=== PATIENT | male | born 1945 | race Hispanic/Latino ===

== ENCOUNTER → 2017-09-17 | Outpatient (CLI) | payer MEDICARE, OTHER ==
[~2017-09-17] MED LIST: BENEFIBER240 GM PO; CLOPIDOGREL75 MG PO; FENOFIBRATE; LOSARTAN POTASS25 MG PO; LYRICA50 MG; NORCO 10-325 T1 EACH; PANTOPRAZOLE SO40 MG PO; TYLENOL; ULTRAM 50MG50 MG PO; ZANTAC
--- NOTE | 2017-09-17 15:05 | Diagnostic Imaging Report ---
PROCEDURE:X-RAY UNILATERAL RIBS WITH CHEST X-RAY COMPARISON:None. INDICATIONS:LEFT SIDE UPPER RIB PAIN FINDINGS: No focal consolidations. Left basilar atelectasis or scarring. No pleural effusions or pneumothorax. Tortuous aorta with calcifications. Cardiomediastinal silhouette is otherwise normal. Limited evaluation for subtle nondisplaced fractures secondary to motion and habitus. No acute displaced fracture or dislocation. Bone cement projects over the upper lumbar spine. CONCLUSION: No displaced rib fractures. Dictated by: Juve Tapia M.D. on 09/17/2017 at 15:06 Electronically approved by: Juve Tapia M.D. on 09/17/2017 at 15:06
== END ==
LOC: RAD 14:03
PROVIDERS: ATTEND Family Medicine
DX: R07.81 Pleurodynia (principal); R07.89 Other chest pain
CPT/HCPCS: 71101

== ENCOUNTER → 2018-01-05 | Outpatient (CLI) | payer MEDICARE, OTHER | LOC: CARD 14:52 | PROVIDERS: ATTEND Family Medicine | DX: I73.9 Peripheral vascular disease, unspecified (principal); R60.9 Edema, unspecified | CPT/HCPCS: 93922; 93926 ==

== ENCOUNTER → 2018-11-09 | Outpatient (CLI) | payer MEDICARE, OTHER ==
[2018-11-09 14:09] LABS: CREATININE, SERUM 2.52 mg/dL (0.72-1.25)
== END ==
LOC: CT 13:04
PROVIDERS: ATTEND Internal Medicine Cardiovascular Disease
DX: I70.213 Atherosclerosis of native arteries of extremities with intermittent claudication, bilateral legs (principal)
CPT/HCPCS: 36415; 82565; 84520

== ENCOUNTER 2020-06-26 11:56 | Inpatient (IN) | payer MEDICARE, OTHER ==
[~2020-06-26] VITALS: Ht 172.7 cm; Wt 70.3 kg
[2020-06-26 12:41] LABS: BASOPHILS % 0.2 % (0.0-1.0); EOSINOPHILS % 0.4 % (0.0-6.0); LYMPHOCYTES # (AUTO) 1.3 (1.0-3.2); MEAN CORPUSCULAR HEMOGLOBIN 37.6 pg (28-32); MEAN CORPUSCULAR HGB CONC 33.5 g/dL (31-35); MEAN CORPUSCULAR VOLUME 112.4 fL (81-99); MONOCYTES # (AUTO) 0.5 (0.2-0.8); NEUTROPHILS # (AUTO) 2.9 (2.1-6.9); NEUTROPHILS % 60.8 % (38.7-80.0); PLATELET COUNT 134 x10e3/uL (140-360); RED BLOOD COUNT 1.78 x10e6/uL (4.3-5.7); RED CELL DISTRIBUTION WIDTH 20.2 % (11.7-14.4)
[2020-06-26 12:45] LABS: HEMOGLOBIN 6.7 g/dL (14.0-18.0)
[2020-06-26 12:50] LABS: INR 1.11
[2020-06-26 13:06] LABS: ALBUMIN 3.5 g/dL (3.5-5.0); ALBUMIN/GLOBULIN RATIO 0.9 (0.8-2.0); ANION GAP 14.6 mmol/L (8-16); CALCIUM 8.6 mg/dL (8.4-10.2); CREATININE, SERUM 2.73 mg/dL (0.72-1.25); POTASSIUM 4.6 mmol/L (3.5-5.1)
[2020-06-26] MEDS ORDERED: SODIUM CHLORIDE 0.9% 250ML 250 ML IV ONE (13:30)
[2020-06-26] MEDS ORDERED: HEPARIN SOD (PORCINE) 5,000 UNIT/ML VIAL IV ONE (13:30)
[2020-06-26] MEDS ORDERED: HEPARIN 25,000 UNIT 800 UNIT in DEXTROSE 5% 250ML 250 ML IV SCH (13:30)
[2020-06-26] MEDS ORDERED: ASPIRIN 81 MG CHEW TAB PO NR (13:45)
[2020-06-26] MEDS ORDERED: ONDANSETRON HCL INJ 2MG/ML 2ML 2 MG/ML VIAL IV PRN (15:15)
[2020-06-26] MEDS ORDERED: ACETAMINOPHEN 325 MG TAB PO PRN (15:15)
[2020-06-26] MEDS ORDERED: HYDRALAZINE HCL 20 MG/ML VIAL IV PRN (15:15)
[2020-06-26 15:39] VITALS: BP 129/67
[2020-06-26 16:18] VITALS: BP 129/67
[2020-06-26 16:44] LABS: FERRITIN 444.85 ng/mL (21.81-274.66)
[2020-06-26] MEDS ORDERED: FUROSEMIDE20 MG (17:01)
[2020-06-26] MEDS ORDERED: CLOPIDOGREL75 MG PO (17:01)
[2020-06-26] MEDS ORDERED: ATENOLOL50 MG (17:01)
[2020-06-26] MEDS ORDERED: HYDRALAZINE HCL25 MG PO (17:01)
[2020-06-26 19:47] VITALS: BP 142/66
[2020-06-26 20:00] VITALS: BP 142/66
[2020-06-26] MEDS ORDERED: SODIUM CHLORIDE 0.9% 250ML 250 ML ONE (21:21)
[2020-06-26] MEDS ORDERED: FUROSEMIDE INJ 10 MG/ML 2 ML VIAL IV ONE (21:30)
[2020-06-26] MEDS ORDERED: HYDROCODONE/APAP 10MG-325MG TAB PO PRN (21:45)
[2020-06-26 23:47] VITALS: BP 122/54
[2020-06-27 05:24] VITALS: BP 150/70
[2020-06-27 05:34] LABS: BASOPHILS % 0.2 % (0.0-1.0); EOSINOPHILS % 0.5 % (0.0-6.0); HEMOGLOBIN 7.3 g/dL (14.0-18.0); LYMPHOCYTES # (AUTO) 1.4 (1.0-3.2); LYMPHOCYTES % 33.2 % (18.0-39.1); MEAN CORPUSCULAR HEMOGLOBIN 35.1 pg (28-32); MEAN CORPUSCULAR HGB CONC 33.2 g/dL (31-35); MEAN CORPUSCULAR VOLUME 105.8 fL (81-99); MONOCYTES # (AUTO) 0.5 (0.2-0.8); MONOCYTES % 11.2 % (4.4-11.3); NEUTROPHILS # (AUTO) 2.3 (2.1-6.9); NEUTROPHILS % 54.4 % (38.7-80.0); PLATELET COUNT 125 x10e3/uL (140-360); RED BLOOD COUNT 2.08 x10e6/uL (4.3-5.7); RED CELL DISTRIBUTION WIDTH 21.2 % (11.7-14.4)
[2020-06-27 05:58] LABS: CALCIUM 8.5 mg/dL (8.4-10.2); CREATININE, SERUM 2.86 mg/dL (0.72-1.25)
[2020-06-27 07:15] LABS: CREATINE KINASE MB 6.5 ng/mL (0-5.0)
[2020-06-27 07:26] VITALS: BP 165/95
[2020-06-27] MEDS: PANTOPRAZOLE SOD 40 MG TABEC PO SCH (08:35)
[2020-06-27] MEDS: FUROSEMIDE 20 MG TAB PO SCH (08:36)
[2020-06-27] MEDS: ASPIRIN 325 MG TAB PO SCH (08:36)
[2020-06-27] MEDS: HYDRALAZINE HCL 25 MG TAB PO SCH ×2 (08:36→17:00)
[2020-06-27] MEDS: ATENOLOL 50 MG TAB PO SCH (08:37)
[2020-06-27] MEDS: PREGABALIN 50 MG CAP PO SCH (08:37)
[2020-06-27 08:39] LABS: BAND NEUTROPHILS % (MANUAL) 1 %; LYMPHOCYTES % (MANUAL) 38 % (19-48); MONOCYTES % (MANUAL) 8 % (3.4-9.0); NEUTROPHILS % (MANUAL) 53 % (40-74); NUCLEATED RED BLOOD CELLS 1; PLATELET ESTIMATE SLIGHTLY DECREASED; PLATELET MORPHOLOGY COMMENT NORMAL; RBC MORPHOLOGY COMMENT ABNORMAL
[2020-06-27] MEDS ORDERED: ASPIRIN 325 MG TAB EC PO SCH (09:00)
[2020-06-27 09:41] VITALS: BP 165/95
[2020-06-27 10:58] VITALS: BP 157/76
[2020-06-27 15:00] VITALS: BP 110/54
[2020-06-27 15:22] LABS: CREATINE KINASE MB 5.2 ng/mL (0-5.0)
[2020-06-27 16:15] LABS: HEMATOCRIT 23.2 % (38.2-49.6); HEMOGLOBIN 7.7 g/dL (14.0-18.0)
[2020-06-27 20:00] VITALS: BP_SYST 110; BP_SYST 165; BP_DIAS 54; BP_DIAS 79
[2020-06-28] VITALS (8 sets, daily range): BP systolic 101–171; BP diastolic 57–79
[2020-06-28 06:00] LABS: BASOPHILS % 0.2 % (0.0-1.0); EOSINOPHILS % 0.6 % (0.0-6.0); HEMATOCRIT 23.9 % (38.2-49.6); LYMPHOCYTES # (AUTO) 1.1 (1.0-3.2); LYMPHOCYTES % 23.1 % (18.0-39.1); MEAN CORPUSCULAR HEMOGLOBIN 35.4 pg (28-32); MEAN CORPUSCULAR HGB CONC 33.5 g/dL (31-35); MEAN CORPUSCULAR VOLUME 105.8 fL (81-99); MONOCYTES # (AUTO) 0.6 (0.2-0.8); MONOCYTES % 12.6 % (4.4-11.3); NEUTROPHILS # (AUTO) 3.1 (2.1-6.9); NEUTROPHILS % 62.9 % (38.7-80.0); PLATELET COUNT 174 x10e3/uL (140-360); RED BLOOD COUNT 2.26 x10e6/uL (4.3-5.7); RED CELL DISTRIBUTION WIDTH 22.1 % (11.7-14.4)
[2020-06-28 06:33] LABS: ALBUMIN 3.5 g/dL (3.5-5.0); ANION GAP 13.9 mmol/L (8-16); CREATININE, SERUM 2.78 mg/dL (0.72-1.25); POTASSIUM 3.9 mmol/L (3.5-5.1)
[2020-06-28 07:42] LABS: PLATELET ESTIMATE ADEQUATE; PLATELET MORPHOLOGY COMMENT NORMAL; RBC MORPHOLOGY COMMENT ABNORMAL
[2020-06-28 07:44] LABS: POLYCHROMASIA FEW
[2020-06-28] MEDS: HYDRALAZINE HCL 25 MG TAB PO SCH ×2 (08:15→18:03)
[2020-06-28] MEDS: PANTOPRAZOLE SOD 40 MG TABEC PO SCH (08:15)
[2020-06-28] MEDS: ASPIRIN 325 MG TAB PO SCH (08:16)
[2020-06-28] MEDS: FUROSEMIDE 20 MG TAB PO SCH (08:16)
[2020-06-28] MEDS: PREGABALIN 50 MG CAP PO SCH (08:16)
[2020-06-28] MEDS: ATENOLOL 50 MG TAB PO SCH (08:17)
[2020-06-28] MEDS: ALBUTEROL/IPRATROPIUM 3 ML NEB NEB PRN ×2 (12:51→15:39)
[2020-06-28] MEDS ORDERED: ONDANSETRON HCL 4 MG ORAL DISINTEGRATING TAB PO PRN (14:15)
[2020-06-28] MEDS ORDERED: BISACODYL 5 MG TAB EC PO ONE (15:00)
[2020-06-28] MEDS: DOCUSATE SODIUM LIQD 100 MG/10 ML UDC NG SCH (18:02)
[2020-06-29] VITALS (8 sets, daily range): BP systolic 88–159; BP diastolic 51–81
[2020-06-29 05:51] LABS: BASOPHILS % 0.2 % (0.0-1.0); EOSINOPHILS % 0.6 % (0.0-6.0); HEMATOCRIT 22.3 % (38.2-49.6); HEMOGLOBIN 7.4 g/dL (14.0-18.0); LYMPHOCYTES # (AUTO) 1.2 (1.0-3.2); LYMPHOCYTES % 23.7 % (18.0-39.1); MEAN CORPUSCULAR HEMOGLOBIN 35.6 pg (28-32); MEAN CORPUSCULAR HGB CONC 33.2 g/dL (31-35); MEAN CORPUSCULAR VOLUME 107.2 fL (81-99); MONOCYTES # (AUTO) 0.6 (0.2-0.8); MONOCYTES % 12.3 % (4.4-11.3); NEUTROPHILS # (AUTO) 3.3 (2.1-6.9); NEUTROPHILS % 62.8 % (38.7-80.0); PLATELET COUNT 222 x10e3/uL (140-360); RED BLOOD COUNT 2.08 x10e6/uL (4.3-5.7); RED CELL DISTRIBUTION WIDTH 22.7 % (11.7-14.4)
[2020-06-29 06:41] LABS: ANION GAP 13.8 mmol/L (8-16); CALCIUM 8.9 mg/dL (8.4-10.2); CREATININE, SERUM 3.61 mg/dL (0.72-1.25); POTASSIUM 3.8 mmol/L (3.5-5.1)
[2020-06-29] MEDS: ATENOLOL 50 MG TAB PO SCH (09:00)
[2020-06-29] MEDS: DOCUSATE SODIUM LIQD 100 MG/10 ML UDC NG SCH ×2 (10:02→18:52)
[2020-06-29] MEDS: PREGABALIN 50 MG CAP PO SCH (10:03)
[2020-06-29] MEDS: ASPIRIN 325 MG TAB PO SCH (10:03)
[2020-06-29] MEDS: HYDRALAZINE HCL 25 MG TAB PO SCH ×2 (10:03→18:52)
[2020-06-29] MEDS: FUROSEMIDE 20 MG TAB PO SCH (10:03)
[2020-06-29] MEDS: PANTOPRAZOLE SOD 40 MG TABEC PO SCH (10:04)
[2020-06-29] MEDS: ALBUTEROL/IPRATROPIUM 3 ML NEB NEB PRN (11:36)
[2020-06-29] MEDS ORDERED: REGADENOSON 0.4 MG/5 ML SYR IV ONE (12:13)
[2020-06-29] MEDS ORDERED: SODIUM CHLORIDE 0.9% 500ML 500 ML IV ONE (16:15)
[2020-06-30] VITALS (7 sets, daily range): BP systolic 101–143; BP diastolic 20–63
[2020-06-30 05:10] LABS: BASOPHILS % 0.2 % (0.0-1.0); EOSINOPHILS # (AUTO) 0.1 (0.0-0.4); EOSINOPHILS % 1.4 % (0.0-6.0); HEMATOCRIT 23.8 % (38.2-49.6); HEMOGLOBIN 7.8 g/dL (14.0-18.0); LYMPHOCYTES # (AUTO) 1.1 (1.0-3.2); LYMPHOCYTES % 25.3 % (18.0-39.1); MEAN CORPUSCULAR HEMOGLOBIN 36.3 pg (28-32); MEAN CORPUSCULAR HGB CONC 32.8 g/dL (31-35); MEAN CORPUSCULAR VOLUME 110.7 fL (81-99); MONOCYTES # (AUTO) 0.5 (0.2-0.8); MONOCYTES % 12.8 % (4.4-11.3); NEUTROPHILS # (AUTO) 2.5 (2.1-6.9); NEUTROPHILS % 59.8 % (38.7-80.0); PLATELET COUNT 269 x10e3/uL (140-360); RED BLOOD COUNT 2.15 x10e6/uL (4.3-5.7)
[2020-06-30 05:27] LABS: CALCIUM 8.8 mg/dL (8.4-10.2); CREATININE, SERUM 3.41 mg/dL (0.72-1.25)
[2020-06-30] MEDS: DOCUSATE SODIUM LIQD 100 MG/10 ML UDC NG SCH ×2 (08:38→16:23)
[2020-06-30] MEDS: PREGABALIN 50 MG CAP PO SCH (08:38)
[2020-06-30] MEDS: ASPIRIN 325 MG TAB PO SCH (08:38)
[2020-06-30] MEDS: PANTOPRAZOLE SOD 40 MG TABEC PO SCH (08:38)
[2020-06-30] MEDS: HYDRALAZINE HCL 25 MG TAB PO SCH ×2 (08:39→16:23)
[2020-06-30] MEDS: ATENOLOL 50 MG TAB PO SCH (08:39)
[2020-06-30] MEDS ORDERED: BISACODYL 5 MG TAB EC PO ONE (16:00)
[2020-07-01] VITALS (8 sets, daily range): BP systolic 119–151; BP diastolic 58–99
[2020-07-01 06:00] LABS: BASOPHILS % 0.3 % (0.0-1.0); EOSINOPHILS # (AUTO) 0.1 (0.0-0.4); EOSINOPHILS % 1.6 % (0.0-6.0); HEMATOCRIT 24.8 % (38.2-49.6); LYMPHOCYTES # (AUTO) 0.8 (1.0-3.2); LYMPHOCYTES % 22.3 % (18.0-39.1); MEAN CORPUSCULAR HEMOGLOBIN 35.2 pg (28-32); MEAN CORPUSCULAR HGB CONC 32.3 g/dL (31-35); MEAN CORPUSCULAR VOLUME 109.3 fL (81-99); MONOCYTES # (AUTO) 0.5 (0.2-0.8); MONOCYTES % 13.3 % (4.4-11.3); NEUTROPHILS # (AUTO) 2.3 (2.1-6.9); NEUTROPHILS % 62.2 % (38.7-80.0); PLATELET COUNT 341 x10e3/uL (140-360); RED BLOOD COUNT 2.27 x10e6/uL (4.3-5.7); RED CELL DISTRIBUTION WIDTH 22.8 % (11.7-14.4)
[2020-07-01 06:40] LABS: ALBUMIN 2.9 g/dL (3.5-5.0); ALBUMIN/GLOBULIN RATIO 0.8 (0.8-2.0); ANION GAP 15.3 mmol/L (8-16); CALCIUM 8.6 mg/dL (8.4-10.2); CREATININE, SERUM 2.82 mg/dL (0.72-1.25); POTASSIUM 4.3 mmol/L (3.5-5.1)
[2020-07-01] MEDS: PANTOPRAZOLE SOD 40 MG TABEC PO SCH (08:39)
[2020-07-01] MEDS: DOCUSATE SODIUM LIQD 100 MG/10 ML UDC NG SCH ×2 (08:39→17:15)
[2020-07-01] MEDS: HYDRALAZINE HCL 25 MG TAB PO SCH ×2 (08:40→17:15)
[2020-07-01] MEDS: ASPIRIN 325 MG TAB PO SCH (08:40)
[2020-07-01] MEDS: PREGABALIN 50 MG CAP PO SCH (08:40)
[2020-07-01] MEDS: ATENOLOL 50 MG TAB PO SCH (08:40)
[2020-07-01] MEDS ORDERED: CITRATE OF MAGNESIA 300ML BOTTLE PO ONE (15:30)
[2020-07-01] MEDS ORDERED: SODIUM CHLORIDE 0.9% 500ML 500 ML IV ONE (22:00)
[2020-07-02] VITALS: BP 161/76
[2020-07-02 04:00] VITALS: BP 162/90
[2020-07-02 05:30] LABS: HEMATOCRIT 24.9 % (38.2-49.6); HEMOGLOBIN 7.8 g/dL (14.0-18.0)
[2020-07-02 06:03] LABS: ANION GAP 15.8 mmol/L (8-16); CALCIUM 8.7 mg/dL (8.4-10.2); CREATININE, SERUM 2.47 mg/dL (0.72-1.25); POTASSIUM 4.8 mmol/L (3.5-5.1)
[2020-07-02 07:48] VITALS: BP 159/143
[2020-07-02 08:08] VITALS: BP 159/143
[2020-07-02] MEDS: PANTOPRAZOLE SOD 40 MG TABEC PO SCH (08:32)
[2020-07-02] MEDS: DOCUSATE SODIUM LIQD 100 MG/10 ML UDC NG SCH ×2 (08:32→16:50)
[2020-07-02] MEDS: HYDRALAZINE HCL 25 MG TAB PO SCH ×2 (08:32→16:50)
[2020-07-02] MEDS: ATENOLOL 50 MG TAB PO SCH (08:33)
[2020-07-02] MEDS: PREGABALIN 50 MG CAP PO SCH (08:33)
[2020-07-02] MEDS: ASPIRIN 325 MG TAB PO SCH (08:33)
[2020-07-02 12:52] VITALS: BP 135/64
[2020-07-02 16:34] VITALS: BP 120/58
== END 2020-07-02 18:24 | DRG 811 ==
LOC: ER 12:11 → ERHOLD 13:32 → MED/SURG 15:13 → MED/SURG3 07-02 13:26
PROVIDERS: ADMIT Internal Medicine; ATTEND Internal Medicine
PROC: 30233N1 Transfusion of Nonautologous Red Blood Cells into Peripheral Vein, Percutaneous Approach (ICD-10-PCS; principal; 2020-06-26)
DX: D64.9 Anemia, unspecified (principal); I21.4 Non-ST elevation (NSTEMI) myocardial infarction; N17.9 Acute kidney failure, unspecified; N18.4 Chronic kidney disease, stage 4 (severe); I69.354 Hemiplegia and hemiparesis following cerebral infarction affecting left non-dominant side; J44.9 Chronic obstructive pulmonary disease, unspecified; I12.9 Hypertensive chronic kidney disease with stage 1 through stage 4 chronic kidney disease, or unspecified chronic kidney disease; Z20.822 Contact with and (suspected) exposure to COVID-19
CPT/HCPCS: 36415; 70450; 71045; 74230; 78452; 80048; 80053; 82270; 82550; 82553; 82728; 83540; 84466; 84484; 85014; 85018; 85025; 85610; 85730; 86850; 86900; 86920; 93005; 93017; 93306; 94640; 96360; 97139; 99285; A9502; J1940; J7040; J7050; P9016; U0002